=== PATIENT | female | born 1930 | race African-American/Black ===

== ENCOUNTER 2016-10-25 21:20 | Emergency (ER) | payer OTHER ==
[~2016-10-25] VITALS: Ht 160 cm; Wt 38.6 kg
--- NOTE | ~2016-10-25 | EKG ---
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 : 1930 Requested By: Bryant Kay Order Number: [id number] MD: Ignacio Jay Measurements Intervals [place] Rate: 82 P: 6 MD: 160 QRS: -48 QRSD: 91 T: 8 QT: 421 QTc: 492 Interpretive Statements Sinus rhythm Probable left atrial enlargement Left anterior fascicular block Abnormal R-wave progression, early transition Left ventricular hypertrophy Nonspecific T wave abnormality Borderline prolonged QT interval Compared to ECG 11/23/2015 01:13:38 [address] changes in the ST-T wave segments Electronically Signed On 10-26-2016 7:37:16 CDT by Ignacio Jya [email or web address] <ELECTRONICALLY SIGNED> By: Ignacio Jay MD, [facility] 10/26/16 0737 2148 2148 Ignacio Jay MD, [facility] /EPI
[~2016-10-25 21:20] MED LIST: ACETAMINOPHEN325 M1 PO; ALBUTEROL2.5 MG/0.5 INH; ALPRAZOLAM 0.0.25 M1 PO; AMBIEN 5 MG TABL5 MG PO; AMLODIPINE BESY10 MG PO; AMLODIPINE BESYL5 MG PO; ASPIRIN EC81 M1 PO; ASPIRIN325 PO; ATIVAN0.5 MG PO; BISACODYL SUPP10 MG RECTAL; CALCIUM ACETAT667 MG PO; CARVEDILOL12.5 MG PO; CATAPRES-TTS 20.2 MG TD; CATAPRES0.2 MG PO; CIPROFLOXACIN500 M3 PO; CLONIDINE HCL0.2 M2 PO; CLONIDINE HCL0.3 M2 PO; CLONIDINE PO; CLONIDINE-TTS0.3 MG TRANSDERM; COLACE100 MG PO; COMBIVENT; COMBIVENT INH; COREG PO; COUMADIN 2 MG TA2 M1; CYCLOBENZAPRINE10 MG PO; CYCLOBENZAPRINE30 MG PO; DIOVAN320 MG PO; DIPHENHIST25 M2 PO; ENOXAPARIN 30 MG SUBQ; ENOXAPARIN30 MG/0.1 SQ; ENOXAPARIN30 MG/0.1 SUBQ; ENOXAPARIN30 MG/0.3 SQ; FAMOTIDINE20 MG PO; FLUZONE 2045 MCG/010; GABAPENTIN100 MG PO; GLYCOLAX POWDER17 G1 PO; HYDRALAZINE 2525 MG PO; HYDRALAZINE 5050 MG PO; HYDROCODON-ACE1 EAC7 PO; HYDROCODON-ACE1 EACH PO; IMDUR 60 MG TAB60 M1 PO; LIDOCAINE/PRILOCAINE TOP; LISINOPRIL 20 MG PO; LISINOPRIL40 MG PO; MIRALAX17 GM PO; NEPHROCAPS SOFT1 CAP PO; NORCO 5-325 TA1 EACH PO; NOVOLOG100 UNIT/1 SUBQ; ONDANSETRON HCL4 M2 PO; PAIN & FEVER325 MG PO; PAROXETINE HCL10 MG PO; PAXIL10 MG PO; PERCOCET 5-3251 EACH PO; PHOSLO; PHOSLO667 MG PO; PNEUMOVAX25 MCG/0.5; PRILOSEC 20 MG20 MG PO; REGLAN 5 MG TAB5 M1 PO; REMERON15 MG PO; REMERON30 MG PO; RENAL CAPS SOFTG1 MG PO; RENAL SOFTGEL1 MG PO; RENVELA800 MG PO; ROBITUSSIN; SENNA PO; SENOKOT-S1 TA1 PO; SIMVASTATIN1 GM PO; SODIUM BICARBO650 M3; SODIUM BICARBO650 M3 PO; SORBITOL SOLUT500 ML PO; TRAMADOL 50 MG50 MG PO; ULTRAM 50MG TAB50 MG PO; ZESTRIL10 MG PO; ZESTRIL20 MG PO; ZOCOR 10 MG TAB10 MG PO; ZOFRAN; ZOFRAN4 MG PO; [UNRECOGNIZED DRUG - OTHER]; [UNRECOGNIZED DRUG - OTHER] INH
[2016-10-25] MEDS ORDERED: SIMVASTATIN10 MG PO (21:41)
[2016-10-25] MEDS ORDERED: CATAPRES0.2 MG PO (21:41)
[2016-10-25] MEDS ORDERED: SENSIPAR60 MG PO (21:41)
[2016-10-25] MEDS ORDERED: LISINOPRIL20 MG PO (21:41)
[2016-10-25 22:07] LABS: HEMOGLOBIN 12.7 gm/dL (12.0-15.0); MANUAL DIFF YES; MCH 27.5 pg (26.0-34.0); MCHC 32.5 g/dL (28.0-37.0); MCV 84.7 fL (80.0-100.0); PLATELET COUNT 176 thou/uL (150-400); RBC 4.61 mil/uL (4.20-5.00); RDW 18.3 % (10.5-14.5); WBC 6.5 thou/uL (4.0-11.0)
[2016-10-25 22:23] LABS: APTT 45.7 Seconds (24.5-32.8); CALCIUM 8.8 mg/dL (8.5-10.1); CREATININE 6.6 mg/dL (0.6-1.3); INR 3.3; POTASSIUM 4.1 mmol/L (3.5-5.1); PROTIME 34.1 Seconds (9.3-11.4)
[2016-10-25 22:27] LABS: ABSOLUTE NEUTROPHILS 4.9 thou/uL (1.4-8.2); TOTAL BILIRUBIN 0.6 mg/dL (<0.1-1.0); TOTAL CELL COUNT 100; TOTAL PROTEIN 7.5 g/dL (6.4-8.2)
[2016-10-25 22:28] LABS: ANISOCYTOSIS 2+; POLYCHROMASIA OCCASIONAL
[2016-10-25] MEDS ORDERED: ZOFRAN ODT4 MG PO (23:28)
[2016-10-25] MEDS ORDERED: LOPERAMIDE 2 MG2 M1 PO (23:28)
== END 2016-10-25 23:48 | disposition home or self-care (01) ==
LOC: ER 21:20
PROVIDERS: Emergency Medicine
DX: K52.9 Noninfective gastroenteritis and colitis, unspecified (principal); E11.22 Type 2 diabetes mellitus with diabetic chronic kidney disease; I13.2 Hypertensive heart and chronic kidney disease with heart failure and with stage 5 chronic kidney disease, or end stage renal disease; I50.32 Chronic diastolic (congestive) heart failure; N18.6 End stage renal disease; A52.17 General paresis; H35.30 Unspecified macular degeneration; K21.9 Gastro-esophageal reflux disease without esophagitis; F41.9 Anxiety disorder, unspecified; Z88.6 Allergy status to analgesic agent; Z88.7 Allergy status to serum and vaccine; Z88.5 Allergy status to narcotic agent; Z88.8 Allergy status to other drugs, medicaments and biological substances

== ENCOUNTER 2016-10-26 22:32 | Emergency (ER) | payer OTHER ==
[~2016-10-26] VITALS: Ht 152.4 cm; Wt 44.0 kg
[~2016-10-26 22:32] MED LIST changes: +LISINOPRIL20 MG PO; +LOPERAMIDE 2 MG2 M1 PO; +SENSIPAR60 MG PO; +SIMVASTATIN10 MG PO; +ZOFRAN ODT4 MG PO
[2016-10-26 23:20] LABS: ABSOLUTE NEUTROPHILS 7.6 thou/uL (1.4-8.2); BASOPHILS 0.5 % (0.0-2.0); EOSINOPHILS 0.2 % (0.0-3.0); HEMATOCRIT 40.5 % (37.0-47.0); HEMOGLOBIN 13.2 gm/dL (12.0-15.0); LYMPHOCYTES 3.7 % (24.0-44.0); MCH 27.8 pg (26.0-34.0); MCHC 32.5 g/dL (28.0-37.0); MCV 85.6 fL (80.0-100.0); MONOCYTES 8.8 % (1.0-8.0); PLATELET COUNT 181 thou/uL (150-400); POLYS 86.8 % (36.0-66.0); RBC 4.74 mil/uL (4.20-5.00); RDW 18.8 % (10.5-14.5); WBC 8.8 thou/uL (4.0-11.0)
[2016-10-26 23:23] LABS: MANUAL DIFF NO
[2016-10-27 01:01] LABS: URINE BILIRUBIN NEGATIVE (Negative); URINE BLOOD 2+ (Negative); URINE COLOR YELLOW; URINE GLUCOSE-RANDOM* TRACE (Negative); URINE KETONES NEGATIVE (Negative); URINE LEUKOCYTES-REFLEX TRACE (Negative); URINE PROTEIN (DIPSTICK) 2+ (Negative); URINE SPECIFIC GRAVITY 1.015 (1.003-1.035); URINE UROBILINOGEN 0.2 E.U./dl (0.2-1.0)
[2016-10-27 01:10] LABS: CASTS None Seen /LPF (None Seen); CRYSTALS None Seen /LPF (None Seen); SQUAMOUS 4-10 Moderate /LPF (0-3)
[2016-10-27 01:11] LABS: URINE RBC 3-10 Few /HPF (0-2); URINE WBC-REFLEX 0-5 Rare /HPF (0-5)
[2016-10-27 01:36] LABS: ALBUMIN 3.6 g/dL (3.4-5.0); CALCIUM 9.6 mg/dL (8.5-10.1); POTASSIUM 4.2 mmol/L (3.5-5.1); TOTAL BILIRUBIN 0.6 mg/dL (<0.1-1.0); TOTAL PROTEIN 8.3 g/dL (6.4-8.2)
[2016-10-27 01:39] LABS: CREATININE 4.4 mg/dL (0.6-1.3)
[2016-10-27] MEDS ORDERED: CEFDINIR300 MG PO (02:31)
== END 2016-10-27 04:10 | disposition home or self-care (01) ==
LOC: ER 22:32
PROVIDERS: Emergency Medicine
DX: R11.2 Nausea with vomiting, unspecified (principal); N39.0 Urinary tract infection, site not specified; E11.22 Type 2 diabetes mellitus with diabetic chronic kidney disease; I13.2 Hypertensive heart and chronic kidney disease with heart failure and with stage 5 chronic kidney disease, or end stage renal disease; N18.6 End stage renal disease; I50.9 Heart failure, unspecified; Z99.2 Dependence on renal dialysis; K21.9 Gastro-esophageal reflux disease without esophagitis; F41.9 Anxiety disorder, unspecified; Z88.6 Allergy status to analgesic agent; Z88.5 Allergy status to narcotic agent; Z88.7 Allergy status to serum and vaccine; Z88.8 Allergy status to other drugs, medicaments and biological substances

== ENCOUNTER 2016-10-28 09:01 | Inpatient (IN) | payer OTHER ==
[~2016-10-28] VITALS: Ht 165.1 cm; Wt 39.7 kg
--- NOTE | ~2016-10-28 | HC ---
[facility] [place] [address] CONSULTATION Name: ZARIA MAC Room #: 246-P [facility] IN M.R.#: [id number] Admission: 10/28/16 Attend Phys: Latricia Davis Discharge: Date of : 32 Report #: [id number] THIS REPORT FOR: //name// CC: Jennifer Davis PRIMARY CARE PHYSICIAN: Unknown. REFERRAL PHYSICIAN: Latricia Davis MD. REASON FOR REFERRAL: Ventilator management. HISTORY OF PRESENT ILLNESS: The patient is an 86-year-old female who was initially admitted on 10/28/2016 for her abdominal pain, nausea, vomiting, diarrhea. She was subsequently found to have bowel perforation. She underwent surgery yesterday afternoon. She was found to have perforated jejunum. She then underwent exploratory laparotomy, lysis of adhesion, segmental small bowel resection x 2, repair of incarcerated ventral hernia. Estimated blood loss was approximately 50 mL. The patient was left on a ventilator postoperatively. Early this morning, the patient underwent CPAP trial. Weaning parameters looked adequate, though mentally, the patient still remained somnolent, but arousable, but easily falls back to sleep. Hemodynamically had been stable overnight. PAST MEDICAL HISTORY: Notable for end-stage renal disease, undergoing hemodialysis, history of heart failure, hypertension, diabetes mellitus type 2, progressive dementia, macular degeneration with near blindness, malnutrition, weight loss wasting syndrome, gastroesophageal reflux disease, anxiety disorder. She has anemia of chronic disease, past history of TIA, cardiomyopathy with marked diastolic dysfunction, history of bowel obstruction and chronic debility. On chronic anticoagulation, reasons unknown. PAST SURGICAL HISTORY: As mentioned above including an AV fistula in the left upper forearm for her dialysis, left knee replacement. ALLERGIES: To CODEINE, TETANUS, DARVOCET, INDAPAMIDE, ZEMPLAR, reactions unspecified. MEDICATIONS: Reviewed. HOME MEDICATIONS: Include Zestril, simvastatin, Sensipar, Catapres, amlodipine, sodium bicarbonate, calcium supplements, Paxil, Zocor, NovoLog, Ultram, folic acid, Renvela, Dulcolax, MiraLax, Senokot, on Coumadin 6 mg daily, Lovenox mg subQ at bedtime. [address] [address] CONSULTATION Name: ZARIA MAC Room #: 246-P [facility] IN M.R.#: [id number] Admission: 10/28/16 Attend Phys: Latricia Davis Discharge: Date of : 32 Report #: [id number] FAMILY HISTORY: Notable for diabetes and hypertension. SOCIAL HISTORY: The patient lives with the family. No history of tobacco or alcohol use. REVIEW OF SYSTEMS: Deferred as the patient is intubated. PHYSICAL EXAMINATION: VITAL SIGNS: Temperature is 98 degrees Fahrenheit, pulse is 118, respiratory rate is 20, blood pressure is 130/80 mmHg, saturation 100%. HEENT: Normocephalic, atraumatic. NECK: Supple, without any lymphadenopathy or thyromegaly. CHEST: Breath sounds are clear without any rales or wheezes. CARDIOVASCULAR: Normal S1, S2. No murmurs or gallop. There is no JVD. There is no carotid bruit. Pulses are 2+/4+ bilaterally. ABDOMEN: Mildly distended and surgical dressings are present. GENITOURINARY AND RECTAL: Deferred. EXTREMITIES: There is no edema, cyanosis or clubbing. NEUROLOGIC: The patient appears somnolent, but arousable, but falls to sleep quite easily. The patient has been off the vent for about 2 hours. LABORATORY DATA: CT abdomen and pelvis revealed persistent dilated loops of small bowel consistent with chronic ileus versus partial obstruction. Echocardiogram from 2015 showed normal EF of 55-60%. Right ventricle was normal. Right atrium was mildly dilated. Left atrium was severely dilated. Aortic valve is mildly calcified. Mitral valve is mildly calcified. EKG showed no acute ischemic changes. IMPRESSION: 1. Perforated jejunum, peritonitis status post surgery as mentioned above. 2. End-stage renal disease, on hemodialysis. 3. Diabetes mellitus type 2. 4. Diastolic dysfunction, severe. 5. Chronic anticoagulation, ?indication. 6. Progressive dementia. 7. Progressive malnutrition and weight loss. 8. Expected postoperative respiratory failure. RECOMMENDATIONS AND DISCUSSION: The patient did fairly well on CPAP trial; however, the patient remains somnolent, easily falling asleep off sedation. Once the patient is able to maintain wakefulness, follow commands, I believe it is safe to proceed with extubation. We will continue to follow. DVT and GI prophylaxis will be addressed. Continue current care including broad spectrum antibiotics in light of bowel perforation and peritonitis. The patient will need aggressive nutritional intervention given her malnutrition with a [facility] [place] [address] [place] [address] CONSULTATION Name: ESTEFANIAZARIA Room #: [address] [place] [address] IN M.R.#: [id number] Admission: 10/28/16 Attend Phys: Latricia Chowdhury Sveta Discharge: Date of : 32 Report #: [id number] recent progressive weight loss. Discussed the findings with the patient's family along with nursing. Thank you for this consultation. <ELECTRONICALLY SIGNED> By: Shabbir Newell MD 11/03/16 1525 1128 1409 Shabbir Newell MD /nt
--- NOTE | ~2016-10-28 | O ---
[facility] [place] [address] OPERATIVE REPORT Name: ZARIA MAC Room #: 246-P ADM IN M.R.#: [id number] Admission: 10/28/16 Attend Phys: Latricia Davis Discharge: Date of : 32 Report #: [id number] THIS REPORT FOR: //name// CC: Jennifer Davis DATE OF SERVICE: 11/02/2016 ADMISSION DATE: 10/28/2016 DATE OF OPERATION: 11/02/2016 DATE OF DICTATION: 11/07/2016 PREOPERATIVE DIAGNOSES: Perforated viscus, acute abdomen. POSTOPERATIVE DIAGNOSIS: Perforated small bowel (jejunum). PROCEDURE: Exploratory laparotomy with jejunal resection, lysis of adhesions for 30 minutes. SURGEON: Reji Weber M.D. MOTOR WINDER: Jerry Rodriguez M.D. INDICATIONS: An 86-year-old lady with 15 years of hemodialysis has presented with some obstipation as well as loose stools and was found by x-ray today to have massive amount of free air consistent with perforated viscus. The patient requires operation. The patient and family are in agreement to proceed. OPERATIVE PROCEDURE: The patient was given preoperative IV antibiotics. She had hemodialysis the morning of surgery. She was brought to the operating room suite and had satisfactory induction of general endotracheal anesthesia. The patient's entire abdomen was prepped and draped in usual sterile procedure with DuraPrep solution. An art line had been established in the right radial artery by anesthesia. After draping was completed, an appropriate timeout was then performed. A midline incision was performed. The small bowel was tightly adherent to the anterior abdominal wall from previous surgery. The adhesions were taken down with sharp and tedious dissection utilizing scissors as well as electrocautery 30 minutes of tedious dissection was utilized to free up the small bowel. Upon entering the peritoneal cavity, there was a mid jejunal perforation with green succuss entericus fluid emanating. Cultures were obtained of the peritoneal fluid for aerobes and anaerobes. After tedious dissection the bowel proximal 5 cm from the perforation was transected with the JO ANN stapling device. The mesentery was taken down with the LigaSure device. [facility] [address] [place] [address] OPERATIVE REPORT Name: ZARIA MAC Room #: 246-P [facility] IN M.R.#: [id number] Admission: 10/28/16 Attend Phys: Latricia Davis Discharge: Date of : 32 Report #: [id number] Any bleeding points were controlled with stick ties of 3-0 Vicryl. The dissection was carried down over the pelvic brim. There were dense adhesions and the bowel was freed up with some serosal type injury to the surface of the bowel where it was densely adherent into the pelvis. The distal segment distal to the somewhat ischemic roughened serosal surface of the bowel was picked, the bowel was transected with JO ANN stapling device. The mesentery was transected with the LigaSure. The bowel was marked at the proximal resection margin and the bowel was also marked at the distal resection margin. The perforation was also marked for pathological evaluation. After this was completed, the bowel was then reanastomosed utilizing the JO ANN stapling devices with a 3-0 PDS suture. The entero-enteral anastomosis was performed. The enterotomy end was ligated with the TA 60 stapling device. The enterotomy closure end was then oversewn with a running seromuscular Lembert type sutures. The mesenteric rent was also approximated with running 3-0 PDS sutures. A 3-0 PDS suture was placed in the crotch of the anastomosis. After this was completed, there was a 2 finger opening for the anastomosis. The bowel was run from the ligament of Treitz to the terminal ileum without finding any other serosal injuries. No other abnormalities were encountered. The peritoneal cavity was irrigated with 5 liters of warm saline. After this was completed, a 19-Mozambican NOE drain was brought out on the lateral abdominal wall and placed into the pelvis. This was sutured in place with a 2-0 nylon. The fascia was then approximated with a running #1 looped PDS from the inferior aspect of the midline incision. Another second #1 looped PDS was run from the superior aspect. These were tied individually in the mid portion of the wound. The tails were then tied together. The knot was buried in a subcuticular fashion with 3-0 Vicryl. Skin margins were stapled. The estimated blood loss for the entire procedure was less than 200 mL. The patient tolerated the procedure well. She remained intubated and was returned directly to the Intensive Care Unit in stable, but critical condition. <ELECTRONICALLY SIGNED> By: Reji Weber MD, FACS 11/08/16 1018 1752 1849 Reji Weber MD, FACS /nt
--- NOTE | ~2016-10-28 | HC ---
[facility] [place] [address] CONSULTATION Name: ZARIA MAC Room #: 246-P ADM IN M.R.#: [id number] Admission: 10/28/16 Attend Phys: Latricia Davis Discharge: Date of : 32 Report #: [id number] THIS REPORT FOR: //name// CC: Jennifer Davis DATE OF SERVICE: 11/03/2016 ATTENDING PHYSICIAN: Dr. Brown. CONSULTATION REQUESTED BY: Dr. Weber. REASON FOR CONSULTATION: Antibiotic management. HISTORY OF PRESENT ILLNESS: The patient is an 86-year-old -[place] woman initially hospitalized on October 28 with some nausea and abdominal pain, possible colitis is entertained. Subsequently, she is diagnosed to have free air in the abdomen. She undergoes exploratory laparotomy, lysis of adhesions, segmental small bowel resection and repair of incarcerated abdominal hernia. Peritoneal fluid Gram stain revealed yeast, ID opinion is requested. At present, the patient in the ICU, ventilator dependent. All information gathered from the review of records. 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 DRUG ALLERGIES: CODEINE, PROPOXYPHENE, ACETAMINOPHEN, INDAPAMIDE, PARICALCITOL, . MEDICATIONS: She is on Cipro 400 mg IV daily, metronidazole 500 mg IV 2 times daily, sodium bicarbonate 650 mg p.o. daily, paroxetine 10 mg p.o. daily, lisinopril 20 mg p.o. daily, amlodipine 10 mg p.o. daily, sevelamer 800 mg with meals, pantoprazole 40 mg p.o. daily, insulin lispro per sliding scale, p.r.n. glucose glucagon, p.r.n. ondansetron, tramadol p.o. and morphine sulfate intravenously. Currently, the patient is obviously n.p.o. and not receiving any of her oral medications. SOCIAL HISTORY: Unable to obtain. FAMILY HISTORY: Unable to obtain. REVIEW OF SYSTEMS: Unable to obtain. PHYSICAL EXAMINATION: [facility] [address] [place] [address] CONSULTATION Name: ZARIA MAC Room #: 246-P [facility] IN M.R.#: [id number] Admission: 10/28/16 Attend Phys: Latricia Davis Discharge: Date of : 32 Report #: [id number] GENERAL: Elderly frail-looking woman. VITAL SIGNS: Temperature 100.1 on October 31, afebrile thereafter; pulse 118, respirations 17, blood pressure 106/61, has a right radial artery catheter. HEENMT: Pupils reactive. Mouth, missing teeth. NECK: Supple. LUNGS: Few basilar crackles. HEART: S1, S2. No gallop. ABDOMEN: There is a NOE draining serous type fluid. There is abdominal wound. EXTREMITIES: No clubbing, cyanosis. NEUROLOGIC: Unable to evaluate. LABORATORY DATA: Sodium 140, potassium 4.5, CO2 25, BUN 22, creatinine 2.9, albumin 2.6 g/dL on November 01, protime 13.6 on November 01. WBC 13.9, hemoglobin 11.5, platelets 157,000 today. ABGs revealed pH 7.37, pCO2 30, pO2 188, bicarbonate 17.3, lactate 1. These set of gases on FiO2 50%. MICROBIOLOGY DATA: Urine culture on October 27 revealed greater than 100,000 colonies of gram-negative rods, sensitive to ceftriaxone. The abdominal fluid Gram stain revealed few wbc's, rare yeasts. RADIOLOGY EVALUATION: An x-ray of the abdomen on November 02 revealed development of free intraperitoneal air consistent with bowel perforation which is thought to be significantly increased compared to recent CT scan of abdomen and pelvis on November 01. On November 01, a CT scan of abdomen and pelvis revealed dilated loops of small bowel with air-contrast levels and some contrast-filled small bowel loops suggesting chronic ileus or partial obstruction. ASSESSMENT: 1. Status post exploratory laparotomy, segmental small bowel resection, repair of abdominal wall hernia. 2. Chronic renal failure, on hemodialysis. 3. Malnutrition 4. Dementia. SUGGESTIONS: Recommend treatment with Rocephin 1 g IV daily, continue Flagyl 500 mg IV 2 times daily and give micafungin 100 mg daily for yeast isolated in the peritoneal cavity. Dr. Brown and Dr. Weber, thank you for requesting my suggestion. <ELECTRONICALLY SIGNED> By: Topher Barker MD 11/05/16 1121 0711 0940 Topher Barker MD /nt
--- NOTE | ~2016-10-28 | H ---
[facility] [place] [address] HISTORY AND PHYSICAL Name: ZARIA MAC Room #: 246-P ADM IN M.R.#: [id number] Admission: 10/28/16 Attend Phys: Latricia Davis Discharge: Date of : 32 Report #: [id number] THIS REPORT FOR: //name// CC: Jennifer Brown DATE OF SERVICE: 10/28/2016 CHIEF COMPLAINT: Nausea. HISTORY OF PRESENT ILLNESS: The patient is not really able to give me much history. Apparently the history was given by the family that was in the ER and they are no longer present. history is coming off of the ER notes and what the ER doctor told me. The patient apparently had been having nausea off and on for 2 days and having some diarrhea as well. She had been given antibiotic cefdinir yesterday in the ER for UTI. She has been in the ER 3 days in row for this nausea. She is an end-stage renal dialysis patient and gets her dialysis Saturday, Saturday, Saturday. She apparently had some dark colored emesis yesterday. She denied any more chest pains or shortness of breath. PAST MEDICAL HISTORY: Significant for: 1. End-stage renal disease. 2. Congestive heart failure. 3. Hypertension. 4. Diabetes mellitus type 2. 5. Progressive dementia. 6. Blindness due to macular degeneration. 7. Wasting syndrome. 8. Reflux. 9. Anxiety. MEDICATIONS: Include lisinopril 20 mg a day, simvastatin 10 mg a day, Sensipar 60 mg a day, clonidine 0.2 mg b.i.d., amlodipine 10 mg a day, sodium bicarbonate daily, calcium acetate t.i.d., Paxil 10 mg a day, simvastatin 10 mg a day, insulin sliding scale, tramadol 50 mg q. 6 p.r.n., B vitamins daily, Renvela 800 mg t.i.d., Dulcolax daily, MiraLax daily, Coumadin 6 mg a day, Lovenox 30 at bedtime. ALLERGIES: TYLENOL, CODEINE, INDAPAMIDE, ZEMPLAR, DARVOCET. SOCIAL HISTORY: She is nonsmoker, nondrinker, no recreational drugs. REVIEW OF SYSTEMS: CONSTITUTIONAL: She denied fevers and chills. HEENT: No headaches or visual changes. [address] [address] HISTORY AND PHYSICAL Name: ZARIA MAC Room #: 246-P [facility] IN M.R.#: [id number] Admission: 10/28/16 Attend Phys: Latricia Davis Discharge: Date of : 32 Report #: [id number] CHEST: No chest pains or shortness of breath. GASTROINTESTINAL: Per above, the nausea, vomiting, diarrhea and constipation. GENITOURINARY: No burning or frequency UTI. EXTREMITIES: No new wounds or rashes. No new joint pains or swelling. PHYSICAL EXAMINATION: VITAL SIGNS: In the ER, blood pressure 181/88, pulse is 96, respiratory rate is 18. She is afebrile. She was on 2 liters of nasal cannula. Her weight is 88 pounds. GENERAL: She is a very frail, cachectic looking woman who is confused in no acute distress. HEENT: Her mucous membranes are dry. NECK: Supple without adenopathy, thyromegaly or bruits. CHEST: Clear to auscultation bilaterally. CARDIOVASCULAR: Regular rhythm without murmur. ABDOMEN: Soft, nontender. Bowel sounds are active. EXTREMITIES: Thin, no edema. Pulses are intact. SKIN: No new rashes or wounds. NEUROLOGIC: No new numbness or weakness. She is not oriented to person, place or time. LABORATORY DATA: Sodium 135, potassium 4.5, chloride 95, bicarbonate 21, BUN 85, creatinine 7.1, glucose 81. Lactic acid 1. Calcium 8.2, total bilirubin 0.5. AST 24, ALT 16, alkaline phosphatase 260, albumin 3.3, lipase 278. WBC 12.4, hemoglobin 12.5, hematocrit 38.9, platelet count 184, 76 segs, 10 bands, [address] scan of the abdomen shows no acute evidence of any abnormalities or masses that was given without IV contrast. There is some slight diffuse colonic edema, possible early colitis. ASSESSMENT: 1. Abdominal pain with nausea, possible early colitis on limited CT study. 2. Urinary tract infection. Started on Rocephin. 3. End-stage renal disease. We will get dialysis. 4. We will go ahead and start her on IV antibiotics for colitis in light of the persistence. We will add metronidazole to Rocephin. Keep the Rocephin instead of Cipro in light of her renal disease. If she does not improve soon, we ask GI to see her. 5. For her diabetes mellitus, sliding scale insulin plus her basal insulin. 6. For her dementia, continue home meds. 7. Hyperlipidemia, continue simvastatin. <ELECTRONICALLY SIGNED> By: John Brown MD 11/11/16 0844 1330 2027 John Brown MD /nt
--- NOTE | ~2016-10-28 | EKG ---
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
--- NOTE | ~2016-10-28 | S ---
[facility] [place] [place] [address] SURGICAL PATH RPT PROCEDURE Name: ZARIA PAYTON Room #: 246-P ADM IN M.R.#: [id number] Admission: 10/28/16 Date of : 34 Discharge: Report #: [id number] Path Case #: [id number] PATHOLOGY REPORT COLLECTION DATE: 11/02/2016 RECEIVED DATE: 11/05/2016 SUBMITTING PHYS: Dr. Reji Weber OTHER PHYS: Dr. Latricia Brown SPECIMEN(S) RECEIVED: A.Proximal jejunum B.Segment of jejunum C.Distal segment of jejunum * * * * * * * * * * * * FINAL DIAGNOSIS: A. Small bowel, proximal jejunum, resection: - Moderate acute serositis along with congested vessels identified on the surface, history of hernia. - Mucosa at margins viable and without dysplasia. B. Small intestine, segment of jejunum, resection: - Transmural acute inflammation along with marked serositis as well as area of perforation identified. - Margins of resection showing viable mucosa without any dysplasia. - Acute serositis identified along the serosal surface at proximal and distal margins. C. Small intestine, distal segment of jejunum, resection: - Moderate acute serositis along with congested vessels identified on the surface, history of hernia. - Mucosa at margins viable and without dysplasia. (IUV:demarcus; d/t: 11/06/2016) PATHOLOGIST: Kayleigh Garcia M.D. REPORT ELECTRONICALLY SIGNED BY: Kayleigh Garcia M.D. DATE/TIME: 11/06/2016 14:45 * * * * * * * * * * * * GROSS PATHOLOGY: A. The specimen is received in formalin labeled "Zaria Payton, proximal jejunum". Received is an unoriented segment of small bowel measuring 1.7 cm in length by 3.8 cm in diameter. Both margins are stapled closed. Opening the specimen reveals light watts mucosa with [facility] [address] [place] [address] SURGICAL PATH RPT PROCEDURE Name: ZARIA PAYTON Room #: [facility]- ADM IN M.R.#: [id number] Admission: 10/28/16 Date of : 32 Discharge: Report #: [id number] Path Case #: [id number] normal architectural folds. No distinct nodules or lesions are noted grossly. The specimen is submitted representatively as follows: A1-A2 margin and opposite margin A3 patient relations representative cross sections of specimen. B. The specimen is received in formalin labeled "Zaria Payton, segment of jejunum, suture reid proximal". Received is an oriented segment of small bowel measuring 29.6 cm in length by up to 3.5 cm in diameter. Both margins are stapled closed, however, there is a suture placed at one margin designating this as the proximal aspect of the specimen. The serosal surface is pink-morales to morales-watts appearance. 4.3 cm proximal to the distal margin, the serosal surface is morales-brown to slightly ulcerated in appearance. 0.7 cm proximal to the distal margin, there is a suture within the bowel wall indicating a possible perforation. The surrounding serosal surface is inked black. The specimen is opened along the antimesenteric line to reveal light watts mucosa with normal architectural folds. No distinct nodules or lesions are noted grossly. The attached mesenteric fat measures up to 3.0 cm in thickness. Sectioning through the attached mesenteric fat reveals no readily identifiable lymph nodes. The specimen is submitted representatively as follows B1 proximal margin B2 distal margin B3 patient relations representative sections through slightly ulcerated-appearing serosal surface near distal margin B4 patient relations representative section through possible perforation B5 uninvolved mucosa. C. The specimen is received in formalin labeled "Zaria Payton, distal segment of jejunum". Received is an unoriented segment of small bowel measuring 18.8 cm in length and ranging in diameter from 1.8 to 3.3 cm. Both margins are stapled closed, however, there is a suture present at one margin designating this as the proximal aspect. The serosal surface is pink-morales in appearance with a moderate amount of overlying adhesions near the proximal margin. The attached mesenteric fat measures up to 3.1 cm in thickness. The specimen is opened along the antimesenteric line to reveal light watts mucosa with normal architectural folds. No distinct nodules or lesions are noted grossly. Sectioning through the attached mesenteric fat reveals no readily identifiable lymph nodes. The specimen is submitted representatively as follows: C1 proximal margin C2 distal margin C3 patient relations representative cross-sections of mucosa. (CAA; 11/05/2016) CLINICAL HISTORY: Ventral hernia [facility] [address] [place] [address] SURGICAL PATH RPT PROCEDURE Name: ZARIA PAYTON Room #: 246-P ADM IN M.R.#: [id number] Admission: 10/28/16 Date of : 34 Discharge: Report #: [id number] Path Case #: [id number] INITIAL CPT CODE(S): A; 89647 B; 44196 C; 59624 Professional services performed by [facility] at [place] [address], [place] [address] Technical services performed by [facility] at [address] [place] [address], [facility] [address] [address]. [facility] [address] [place] [address] PHONE: [phone] DIRECTOR: Vernon Zamora M.D. * * * END OF REPORT * * *
--- NOTE | ~2016-10-28 | EKG ---
[address] [address] ELECTROCARDIOGRAM REPORT Name: ZARIA MAC Room #: 246-P ADM IN M.R.#: [id number] Admission: 10/28/16 Attend Phys: Latricia Davis Discharge: Date of : 32 Report #: [id number] THIS REPORT FOR: //name// [facility] Test Date: 2016-11-02 Test Time: 17:13:46 Pat Name: ZARIA MAC Department: Room: 246 Gender: F Public Address Announcer: Amanda CROCKER : 1930 Requested By: Suellen Davila Order Number: [id number] MD: Kush Barker Measurements Intervals [place] Rate: 152 P: -1 HI: 126 QRS: -45 QRSD: 72 T: 74 QT: 327 QTc: 520 Interpretive Statements sinus tachycardia Left ventricular hypertrophy Baseline wander in lead(s) V2 Compared to ECG 10/25/2016 21:48:09 Sinus rhythm no longer present T-wave abnormality no longer present Electronically Signed On 11-03-2016 15:28:49 CDT by Kush Barker [email or web address] <ELECTRONICALLY SIGNED> By: Kush Barker MD 11/03/16 1528 [id number] Kush Barker MD /EPI
--- NOTE | ~2016-10-28 | HC ---
[facility] [place] [address] CONSULTATION Name: ZARIA MAC Room #: 428-P ADM IN M.R.#: [id number] Admission: 10/28/16 Attend Phys: Latricia Davis Discharge: Date of : 32 Report #: [id number] THIS REPORT FOR: //name// CC: Jennifer Davis DATE OF ADMISSION: 10/28/2016 DATE OF CONSULTATION: 10/29/2016 REASON FOR CONSULTATION: End-stage renal disease. HISTORY OF PRESENT ILLNESS: This 86-year-old female has end-stage renal disease secondary to diabetes mellitus and hypertension. She is maintained on dialysis 3 times weekly at [facility]. She has been to the Emergency Room three times within the last week with complaints of nausea and abdominal discomfort. She is admitted at this time for further evaluation and treatment. She denies any evidence of GI blood loss. Her intake has been very poor. She has undergone progressive loss of weight with a current weight of 77 pounds. She denies shortness of breath, productive cough or edema. PAST MEDICAL HISTORY: Remarkable for longstanding diabetes mellitus and hypertension. She has had progressive dementia. She has a history of congestive heart failure and hypertension. 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 MEDICATIONS: On admission include lisinopril 20 mg daily, simvastatin 10 mg daily, Sensipar 60 mg daily, clonidine 0.2 mg b.i.d., amlodipine 10 mg daily, sodium bicarbonate, calcium acetate, Paxil 10 mg daily, simvastatin 10 mg daily, sliding scale NovoLog insulin, tramadol 50 mg q. 6 hours p.r.n., Nephrocaps daily, Renvela 800 mg a.c., Dulcolax, MiraLax, Lovenox. ALLERGIES: Reported to TYLENOL, CODEINE, INDAPAMIDE, ZEMPLAR, and DARVOCET. PERSONAL AND SOCIAL HISTORY: The patient does not smoke, use alcohol or have any history of substance abuse. REVIEW OF SYSTEMS: Remarkable as described in the history of present illness. She denies fevers, chills, sweats or other constitutional complaints. She has had no edema. She denies productive cough, hemoptysis, chest pain or palpitations. PHYSICAL EXAMINATION: GENERAL: Reveals a wasted elderly female in no acute distress. She is presently undergoing dialysis. [address] [address] CONSULTATION Name: ZARIA MAC Room #: 428-P [facility] IN .R.#: [id number] Admission: 10/28/16 Attend Phys: Latricia Davis Discharge: Date of : 32 Report #: [id number] VITAL SIGNS: Blood pressure 150/80, temperature 98, pulse 86, respirations 22. SKIN: Warm and dry. There is no clubbing, cyanosis, edema or adenopathy. Turgor is diminished. Membranes are dry. There is no JVD present. HEENT: The head is normocephalic and atraumatic. The sclerae are white and conjunctivae are not injected. The pharynx is benign. NECK: Supple. LUNGS: Renteria reveal scattered rhonchi without evidence of consolidation. CARDIAC: Reveals a regular rate and rhythm without rub. ABDOMEN: Soft and nontender without palpable mass or organomegaly. NEUROLOGIC: Reveals the patient to be a fair historian with a nonfocal examination. DIAGNOSTIC DATA: Available at this time include sodium 135, potassium 4.5, chloride 94, CO2 21, BUN 85, creatinine 7.1, glucose 81. White blood cell count 9800, hemoglobin 12.5, hematocrit 38.3, platelet count 172,000. ASSESSMENT: 1. Nausea and vomiting with CT scan of the abdomen revealing ascites and thickening of the colon, possibly consistent with colitis. We will obtain a C. difficile. GI has been consulted and will evaluate the patient further. 2. End-stage renal disease on maintenance hemodialysis appearing clinically dry at this time. We will decrease the UF goal to 1000 mL. 3. Hypertension. 4. Diabetes mellitus. 5. Macular degeneration with legal blindness. 6. Progressive dementia. PLAN: We will provide dialysis support and follow the patient while hospitalized. Please see orders. <ELECTRONICALLY SIGNED> By: Naga Santos MD 10/30/16 [id number] Naga Santos MD /nt
--- NOTE | ~2016-10-28 | HC ---
[facility] [place] [address] CONSULTATION Name: ZARIA MAC Room #: 246-P [facility] IN M.R.#: [id number] Admission: 10/28/16 Attend Phys: Latricia Davis Discharge: Date of : 34 Report #: [id number] THIS REPORT FOR: //name// CC: Jennifer Davis DATE OF SERVICE: 11/01/2016 HISTORY OF PRESENT ILLNESS: I have been asked to evaluate this 86-year-old lady who has presented to the hospital with nausea and diarrhea for approximately 2 days. She has been intermittently in the emergency department for her nausea and treated for urinary tract infection with antibiotics, but has finally been admitted and is found on examination by gastroenterology to have significant tenderness in the region of her mid abdomen. At the time of examination, she is able to give me some history. She is oriented, is not complaining of significant abdominal pain. 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 MEDICATIONS: Lisinopril 20 mg daily, simvastatin, Sensipar 60 mg, clonidine 0.2 mg b.i.d., amlodipine 10 mg daily, calcium acetate, Paxil 10 mg a day, insulin sliding scale, tramadol, Dulcolax, MiraLax, Coumadin 6 mg a day, Lovenox 30 mg at bedtime. SURGICAL ILLNESSES: The patient relates that she had a hysterectomy many years ago, does not note exact time frame. ALLERGIES: TYLENOL, CODEINE, INDAPAMIDE, ZEMPLAR, DARVOCET. SOCIAL HISTORY: Nonsmoker, nondrinker, no drugs. Has been living at home with family. REVIEW OF SYSTEMS: Ten point review of systems. She denies any recent change in gastrointestinal function until this hospital admission. PHYSICAL EXAMINATION: GENERAL: Reveals a patient who is alert. HEENT: Edentulous, poor dental hygiene, cachectic. LUNGS: Clear at the bases. CARDIOVASCULAR: Regular rhythm. ABDOMEN: Mild decrease in the fascia without fascial defect just at the level of the umbilicus. She has a nonreducible hernia present at this level. No guarding or rebound is present. [address] [address] CONSULTATION Name: ZARIA MAC Room #: [facility] ADM IN M.R.#: [id number] Admission: 10/28/16 Attend Phys: Latricia Davis Discharge: Date of : 34 Report #: [id number] NEUROLOGIC: She is oriented x 3 with bilateral motor symmetry. LABORATORY DATA: Demonstrates creatinine of 7, lactic acid of 1, hemoglobin of 12. Initial INR is prolonged, but decreasing due to holding of the Coumadin therapy. CT of the abdomen shows no free air. Some dilated loops of small bowel, possibly consistent with chronic adhesive disease or partial small-bowel obstruction. PLAN: I would recommend IV fluids. We will repeat the examination and follow the patient with you. She does not have an acute abdomen at this time. Thank you for allowing us to participate in her care. <ELECTRONICALLY SIGNED> By: Reji Weber MD, FACS 11/06/16 1356 1425 14 Reji Weber MD, FACS /nt
[~2016-10-28 09:01] MED LIST changes: +CEFDINIR300 MG PO
[2016-10-28 09:05] VITALS: BP 181/88
[2016-10-28 10:06] LABS: CALCIUM 8.2 mg/dL (8.5-10.1); POTASSIUM 4.5 mmol/L (3.5-5.1)
[2016-10-28 10:08] LABS: CREATININE 7.1 mg/dL (0.6-1.3)
[2016-10-28 10:09] LABS: HEMATOCRIT 38.9 % (37.0-47.0); HEMOGLOBIN 12.5 gm/dL (12.0-15.0); MCH 27.6 pg (26.0-34.0); MCHC 32.1 g/dL (28.0-37.0); MCV 85.8 fL (80.0-100.0); PLATELET COUNT 184 thou/uL (150-400); RBC 4.53 mil/uL (4.20-5.00); RDW 18.5 % (10.5-14.5); WBC 12.4 thou/uL (4.0-11.0)
[2016-10-28 10:10] LABS: MANUAL DIFF YES
[2016-10-28 10:14] LABS: ALBUMIN 3.3 g/dL (3.4-5.0); DIRECT BILIRUBIN 0.1 mg/dL (<0.1-0.3); TOTAL BILIRUBIN 0.5 mg/dL (<0.1-1.0); TOTAL PROTEIN 7.6 g/dL (6.4-8.2)
[2016-10-28 10:34] LABS: ABSOLUTE NEUTROPHILS 10.7 thou/uL (1.4-8.2); PLATELET ESTIMATE NORMAL; TOTAL CELL COUNT 100
[2016-10-28 12:33] VITALS: BP 159/74
[2016-10-28 13:04] VITALS: BP 180/80
[2016-10-28 16:08] VITALS: BP 176/74
[2016-10-28 16:50] LABS: PROTIME > 210.1 Seconds (9.3-11.4)
[2016-10-28 16:51] LABS: INR > 18.0
[2016-10-28 20:00] VITALS: BP 190/68
[2016-10-28 23:03] VITALS: BP 181/69; BP 187/61
[2016-10-29 05:30] VITALS: BP 190/97
[2016-10-29 06:44] LABS: HEMATOCRIT 38.3 % (37.0-47.0); HEMOGLOBIN 12.5 gm/dL (12.0-15.0); MCH 27.7 pg (26.0-34.0); MCHC 32.8 g/dL (28.0-37.0); MCV 84.5 fL (80.0-100.0); RBC 4.53 mil/uL (4.20-5.00); RDW 18.1 % (10.5-14.5); WBC 9.8 thou/uL (4.0-11.0)
[2016-10-29 06:57] LABS: PROTIME 56.2 Seconds (9.3-11.4)
[2016-10-29 07:10] LABS: INR 5.4
[2016-10-29 08:20] VITALS: BP 150/80
[2016-10-29 11:22] LABS: TSH 0.216 uIU/mL (0.358-3.740)
[2016-10-29 16:09] VITALS: BP 184/88
[2016-10-29 19:40] VITALS: BP 167/86
[2016-10-29 23:08] LABS: HEP B SURFACE Ab(ANTI-HBS Reactive (())
[2016-10-30 04:00] VITALS: BP 153/68
[2016-10-30 05:49] LABS: HEMATOCRIT 39.1 % (37.0-47.0); HEMOGLOBIN 12.5 gm/dL (12.0-15.0); MCH 27.5 pg (26.0-34.0); MCV 86.1 fL (80.0-100.0); RBC 4.54 mil/uL (4.20-5.00); RDW 18.2 % (10.5-14.5); WBC 5.6 thou/uL (4.0-11.0)
[2016-10-30 06:07] LABS: ALBUMIN 2.7 g/dL (3.4-5.0); CALCIUM 8.9 mg/dL (8.5-10.1); PHOSPHORUS 4.9 mg/dL (2.5-4.9); POTASSIUM 4.4 mmol/L (3.5-5.1)
[2016-10-30 06:08] LABS: CREATININE 5.1 mg/dL (0.6-1.3)
[2016-10-30 07:40] VITALS: BP 150/83
[2016-10-30 09:54] LABS: PROTIME 67.1 Seconds (9.3-11.4)
[2016-10-30 10:02] LABS: INR 6.5
[2016-10-30 11:16] VITALS: BP 147/71
[2016-10-30 14:54] VITALS: BP 136/70
[2016-10-30 21:00] VITALS: BP 169/90
[2016-10-31 07:45] VITALS: BP 161/83
[2016-10-31 08:08] LABS: CEA 7.4 ng/mL (0.0-4.7)
[2016-10-31 15:33] VITALS: BP 155/78
[2016-10-31 16:28] LABS: HEMATOCRIT 41.5 % (37.0-47.0); HEMOGLOBIN 13.3 gm/dL (12.0-15.0); MCH 27.6 pg (26.0-34.0); MCV 86.4 fL (80.0-100.0); RBC 4.8 mil/uL (4.20-5.00); WBC 8.8 thou/uL (4.0-11.0)
[2016-10-31 16:39] LABS: PROTIME 12.8 Seconds (9.3-11.4)
[2016-10-31 16:43] LABS: INR 1.2
[2016-10-31 20:00] VITALS: BP 132/68
[2016-11-01 00:02] LABS: HEMOGLOBIN 12.6 gm/dL (12.0-15.0); MCH 27.9 pg (26.0-34.0); MCHC 32.3 g/dL (28.0-37.0); MCV 86.3 fL (80.0-100.0); PLATELET COUNT 128 thou/uL (150-400); RBC 4.52 mil/uL (4.20-5.00); RDW 17.6 % (10.5-14.5); WBC 5.1 thou/uL (4.0-11.0)
[2016-11-01 00:03] LABS: MANUAL DIFF YES
[2016-11-01 04:00] VITALS: BP 151/73
[2016-11-01 05:34] LABS: INR 1.3; PROTIME 13.6 Seconds (9.3-11.4)
[2016-11-01 05:38] LABS: ALBUMIN 2.6 g/dL (3.4-5.0); CALCIUM 9.4 mg/dL (8.5-10.1); CREATININE 4.4 mg/dL (0.6-1.3); PHOSPHORUS 4.7 mg/dL (2.5-4.9); POTASSIUM 4.3 mmol/L (3.5-5.1)
[2016-11-01 05:40] LABS: HEMATOCRIT 38.5 % (37.0-47.0); HEMOGLOBIN 12.5 gm/dL (12.0-15.0); MCH 27.8 pg (26.0-34.0); MCHC 32.5 g/dL (28.0-37.0); MCV 85.6 fL (80.0-100.0); PLATELET COUNT 139 thou/uL (150-400); RDW 17.7 % (10.5-14.5); WBC 4.8 thou/uL (4.0-11.0)
[2016-11-01 05:42] LABS: MANUAL DIFF YES
[2016-11-01 07:19] LABS: TOTAL CELL COUNT 100
[2016-11-01 07:20] LABS: LARGE PLATELETS FEW; PLATELET ESTIMATE DECREASED; TOXIC GRANULATION 1+
[2016-11-01 07:24] LABS: ANISOCYTOSIS 1+; POIKILOCYTOSIS SLIGHT
[2016-11-01 07:25] LABS: OVALOCYTES FEW
[2016-11-01 07:28] LABS: ABSOLUTE NEUTROPHILS 3.8 thou/uL (1.4-8.2); METAMYELOCYTES 2 %; PLATELET ESTIMATE SLIGHTLY DECREASED; TOTAL CELL COUNT 100
[2016-11-01 07:29] LABS: ANISOCYTOSIS 1+; OVALOCYTES OCCASIONAL; POIKILOCYTOSIS SLIGHT; TOXIC GRANULATION 1+
[2016-11-01 08:52] VITALS: BP 124/72
[2016-11-01 15:22] VITALS: BP 154/86
[2016-11-01 20:00] VITALS: BP 159/85
[2016-11-02 04:06] VITALS: BP 173/78
[2016-11-02 05:52] LABS: HEMATOCRIT 39.5 % (37.0-47.0); HEMOGLOBIN 12.7 gm/dL (12.0-15.0); MCH 27.9 pg (26.0-34.0); MCHC 32.2 g/dL (28.0-37.0); MCV 86.5 fL (80.0-100.0); PLATELET COUNT 133 thou/uL (150-400); RBC 4.57 mil/uL (4.20-5.00); RDW 17.6 % (10.5-14.5)
[2016-11-02 06:07] LABS: MANUAL DIFF YES
[2016-11-02 06:19] LABS: CALCIUM 9.2 mg/dL (8.5-10.1); POTASSIUM 5.3 mmol/L (3.5-5.1)
[2016-11-02 06:32] LABS: CREATININE 5.5 mg/dL (0.6-1.3)
[2016-11-02 07:30] VITALS: BP 157/79
[2016-11-02 08:34] LABS: ABSOLUTE NEUTROPHILS 4.5 thou/uL (1.4-8.2); ANISOCYTOSIS 1+; PLATELET ESTIMATE DECREASED; TOTAL CELL COUNT 100
[2016-11-02 12:15] VITALS: BP 153/80
[2016-11-02 16:18] VITALS: BP 129/79
[2016-11-02 21:32] LABS: ABG SAMPLE TYPE ARTERIAL; BE(vivo) -4.8 mmol/L (-2 to +3); HCO3 23.9 mmol/L (22.0-26.0); LACTATE 1.51 mmol/L (0.5-2.0); O2(CT) 16.8 mL/dL (15.0-23.0); O2Hb 97.6 % (92.0-98.0); PO2 206.2 mmHg (80.0-100.0); pH 7.203 (7.360-7.450); sO2 99.1 % (92.0-98.0); tCO2 25.8 mmol/L (24.0-30.0)
[2016-11-02 21:33] LABS: FIO2 60 %; TIDAL VOLUME 250 ml
[2016-11-02 21:46] LABS: POC BE 2 mmol/L (-2.0 to +3.0); POC CA IONIZED 4.2 mg/dL (4.5-5.3); POC FiO2 100 %; POC GLUCOSE 154 mg/dL (70-99); POC HCO3 26.4 mmol/L (22.0-26.0); POC HEMOGLOBIN 12.6 g/dL (12.0-15.0); POC POTASSIUM 2.9 mmol/L (3.5-5.1); POC SODIUM 138 mmol/L (136-145); POC pCO2 39.1 mmHg (35.0-45.0); POC pH 7.436 (7.360-7.450)
[2016-11-02 21:57] LABS: CALCIUM 7.9 mg/dL (8.5-10.1); POTASSIUM 3.5 mmol/L (3.5-5.1)
[2016-11-02 21:59] LABS: CREATININE 2.4 mg/dL (0.6-1.3)
[2016-11-02 23:54] LABS: ABG SAMPLE TYPE ARTERIAL; BE(vivo) -7.1 mmol/L (-2 to +3); HCO3 17.3 mmol/L (22.0-26.0); LACTATE 1.01 mmol/L (0.5-2.0); O2(CT) 12.8 mL/dL (15.0-23.0); O2Hb 97.6 % (92.0-98.0); PCO2 30.4 mmHg (35.0-45.0); PO2 188.7 mmHg (80.0-100.0); pH 7.372 (7.360-7.450); sO2 99.3 % (92.0-98.0); tCO2 18.2 mmol/L (24.0-30.0)
[2016-11-02 23:55] LABS: FIO2 50 %; STICK SITE LINE; TIDAL VOLUME 350 ml
[2016-11-03 03:08] LABS: HEMATOCRIT 36.2 % (37.0-47.0); HEMOGLOBIN 11.5 gm/dL (12.0-15.0); MCH 27.7 pg (26.0-34.0); MCHC 31.8 g/dL (28.0-37.0); MCV 86.9 fL (80.0-100.0); RBC 4.17 mil/uL (4.20-5.00); RDW 17.6 % (10.5-14.5); WBC 13.9 thou/uL (4.0-11.0)
[2016-11-03 03:19] LABS: CALCIUM 8.4 mg/dL (8.5-10.1); CREATININE 2.9 mg/dL (0.6-1.3)
[2016-11-03 03:21] LABS: POTASSIUM 4.5 mmol/L (3.5-5.1)
[2016-11-03 08:52] LABS: ABG SAMPLE TYPE ARTERIAL; BE(vivo) -1.6 mmol/L (-2 to +3); HCO3 23.9 mmol/L (22.0-26.0); LACTATE 1.53 mmol/L (0.5-2.0); O2(CT) 15.9 mL/dL (15.0-23.0); O2Hb 97.7 % (92.0-98.0); PCO2 43.5 mmHg (35.0-45.0); PO2 170.7 mmHg (80.0-100.0); STICK SITE LINE; pH 7.358 (7.360-7.450); sO2 99.1 % (92.0-98.0); tCO2 25.2 mmol/L (24.0-30.0)
[2016-11-03 08:53] LABS: ABG COMMENT 1 HR CPAP TRIAL; Pressure Support 5 cm H20
[2016-11-03 15:13] VITALS: BP 106/34
[2016-11-04 06:55] LABS: HEMATOCRIT 32.1 % (37.0-47.0); HEMOGLOBIN 10.2 gm/dL (12.0-15.0); MCH 27.7 pg (26.0-34.0); MCHC 31.9 g/dL (28.0-37.0); MCV 86.6 fL (80.0-100.0); RBC 3.7 mil/uL (4.20-5.00); RDW 17.9 % (10.5-14.5); WBC 14.2 thou/uL (4.0-11.0)
[2016-11-04 07:10] LABS: ALBUMIN 2.1 g/dL (3.4-5.0); CALCIUM 9.3 mg/dL (8.5-10.1); MAGNESIUM 1.8 mg/dL (1.8-2.4); POTASSIUM 4.4 mmol/L (3.5-5.1); TOTAL BILIRUBIN 0.4 mg/dL (<0.1-1.0); TOTAL PROTEIN 5.4 g/dL (6.4-8.2)
[2016-11-04 07:11] LABS: CREATININE 4.3 mg/dL (0.6-1.3)
[2016-11-04 07:49] VITALS: BP 158/73
[2016-11-04 08:09] VITALS: BP 176/63
[2016-11-04 09:03] LABS: ABG SAMPLE TYPE ARTERIAL; BE(vivo) -3.9 mmol/L (-2 to +3); HCO3 21.6 mmol/L (22.0-26.0); LACTATE 1.32 mmol/L (0.5-2.0); O2Hb 97.1 % (92.0-98.0); PCO2 40.7 mmHg (35.0-45.0); PO2 130.7 mmHg (80.0-100.0); Pressure Support 5 cm H20; STICK SITE LINE; pH 7.342 (7.360-7.450); sO2 98.5 % (92.0-98.0); tCO2 22.8 mmol/L (24.0-30.0)
[2016-11-04 09:04] LABS: ABG COMMENT CPAP TRIAL
[2016-11-04 09:49] VITALS: BP 152/45
[2016-11-04 22:50] VITALS: BP 145/46
[2016-11-05] VITALS (31 sets, daily range): BP systolic 102–186; BP diastolic 24–102
[2016-11-05 05:19] LABS: HEMATOCRIT 31.5 % (37.0-47.0); HEMOGLOBIN 9.8 gm/dL (12.0-15.0); MCH 27.4 pg (26.0-34.0); MCHC 31.2 g/dL (28.0-37.0); MCV 87.9 fL (80.0-100.0); RBC 3.58 mil/uL (4.20-5.00); RDW 17.5 % (10.5-14.5); WBC 14.9 thou/uL (4.0-11.0)
[2016-11-05 05:36] LABS: ALBUMIN 1.9 g/dL (3.4-5.0); CALCIUM 9.1 mg/dL (8.5-10.1); PHOSPHORUS 5.9 mg/dL (2.5-4.9); POTASSIUM 4.2 mmol/L (3.5-5.1)
[2016-11-05 05:42] LABS: CREATININE 5.7 mg/dL (0.6-1.3)
[2016-11-06] VITALS (35 sets, daily range): BP systolic 98–174; BP diastolic 31–82
[2016-11-06 05:23] LABS: ALBUMIN 1.7 g/dL (3.4-5.0); CALCIUM 9.3 mg/dL (8.5-10.1); CREATININE 3.3 mg/dL (0.6-1.0); MAGNESIUM 2.1 mg/dL (1.8-2.4); TOTAL BILIRUBIN 0.4 mg/dL (<0.1-1.0); TOTAL PROTEIN 5.1 g/dL (6.4-8.2)
[2016-11-07] VITALS (61 sets, daily range): BP systolic 103–172; BP diastolic 28–105
[2016-11-07 04:45] LABS: HEMATOCRIT 27.9 % (37.0-47.0); HEMOGLOBIN 8.8 gm/dL (12.0-15.0); MCH 27.6 pg (26.0-34.0); MCHC 31.6 g/dL (28.0-37.0); MCV 87.4 fL (80.0-100.0); PLATELET COUNT 150 thou/uL (150-400); RDW 17.4 % (10.5-14.5); WBC 11.6 thou/uL (4.0-11.0)
[2016-11-07 04:49] LABS: MANUAL DIFF YES
[2016-11-07 05:00] LABS: ALBUMIN 1.8 g/dL (3.4-5.0); CALCIUM 9.6 mg/dL (8.5-10.1); CREATININE 4.4 mg/dL (0.6-1.0); PHOSPHORUS 3.3 mg/dL (2.5-4.9); POTASSIUM 3.9 mmol/L (3.5-5.1)
[2016-11-07 06:51] LABS: TOTAL CELL COUNT 100
[2016-11-07 06:52] LABS: ANISOCYTOSIS 1+
[2016-11-08] VITALS (24 sets, daily range): BP systolic 121–199; BP diastolic 20–96
[2016-11-08 05:13] LABS: ALBUMIN 1.8 g/dL (3.4-5.0); CALCIUM 9.3 mg/dL (8.5-10.1); MAGNESIUM 2.2 mg/dL (1.8-2.4); POTASSIUM 3.7 mmol/L (3.5-5.1); TOTAL BILIRUBIN 0.4 mg/dL (<0.1-1.0); TOTAL PROTEIN 5.8 g/dL (6.4-8.2)
[2016-11-08 05:31] LABS: CREATININE 2.8 mg/dL (0.6-1.0)
[2016-11-08 09:07] LABS: ABG SAMPLE TYPE ARTERIAL; BE(vivo) 3.8 mmol/L (-2 to +3); HCO3 28.8 mmol/L (22.0-26.0); O2(CT) 13.3 mL/dL (15.0-23.0); O2Hb 97.2 % (92.0-98.0); PO2 132.4 mmHg (80.0-100.0); pH 7.415 (7.360-7.450); sO2 98.7 % (92.0-98.0); tCO2 30.2 mmol/L (24.0-30.0)
[2016-11-08 09:08] LABS: ABG COMMENT CPAP TRIAL; Pressure Support 5 cm H20; STICK SITE R.BRACHIAL
[2016-11-09] VITALS (54 sets, daily range): BP systolic 91–209; BP diastolic 28–107
[2016-11-09 06:06] LABS: ALBUMIN 1.6 g/dL (3.4-5.0); CALCIUM 9.4 mg/dL (8.5-10.1); PHOSPHORUS 2.3 mg/dL (2.5-4.9); POTASSIUM 3.5 mmol/L (3.5-5.1)
[2016-11-09 06:09] LABS: CREATININE 3.9 mg/dL (0.6-1.0)
[2016-11-09 06:13] LABS: HEMATOCRIT 28.1 % (37.0-47.0); HEMOGLOBIN 9.1 gm/dL (12.0-15.0); MCHC 32.5 g/dL (28.0-37.0); MCV 86.3 fL (80.0-100.0); RBC 3.25 mil/uL (4.20-5.00); RDW 17.5 % (10.5-14.5); WBC 8.5 thou/uL (4.0-11.0)
[2016-11-10] VITALS (33 sets, daily range): BP systolic 127–186; BP diastolic 32–66
[2016-11-10 05:08] LABS: ALBUMIN 1.6 g/dL (3.4-5.0); CALCIUM 9.1 mg/dL (8.5-10.1); POTASSIUM 3.6 mmol/L (3.5-5.1)
[2016-11-10 05:11] LABS: CREATININE 2.5 mg/dL (0.6-1.0)
[2016-11-11] VITALS (12 sets, daily range): BP systolic 124–175; BP diastolic 42–86
[2016-11-12 07:43] VITALS: BP 129/64
[2016-11-12 07:53] LABS: HEMATOCRIT 25.6 % (37.0-47.0); HEMOGLOBIN 8.4 gm/dL (12.0-15.0); MCHC 32.6 g/dL (28.0-37.0); MCV 85.9 fL (80.0-100.0); RBC 2.98 mil/uL (4.20-5.00); RDW 17.3 % (10.5-14.5)
[2016-11-12 08:11] LABS: PROTIME 10.5 Seconds (9.3-11.4)
[2016-11-12 08:16] LABS: ALBUMIN 1.7 g/dL (3.4-5.0); CALCIUM 9.7 mg/dL (8.5-10.1); PHOSPHORUS 2.8 mg/dL (2.5-4.9); POTASSIUM 4.6 mmol/L (3.5-5.1)
[2016-11-12 08:20] LABS: CREATININE 4.5 mg/dL (0.6-1.0)
[2016-11-12 17:15] VITALS: BP 124/59
[2016-11-12 20:00] VITALS: BP 122/70
[2016-11-13 04:00] VITALS: BP 110/68
[2016-11-13 07:30] VITALS: BP 178/60
[2016-11-13 15:36] VITALS: BP 137/54
[2016-11-13 20:00] VITALS: BP 125/48
[2016-11-14 06:00] VITALS: BP 143/48
[2016-11-14 08:00] VITALS: BP 179/57
== END 2016-11-14 10:32 | disposition hospice, inpatient (51) | DRG 329 ==
LOC: ER 09:01 → 4E 12:02 → ICU 12:02 → EROBS 12:02 → 4E 12:51 → ICU 11-02 21:23 → 5S 11-11 18:50
PROVIDERS: Anesthesiology; Emergency Medicine; Family Medicine; Hospitalist; Internal Medicine Gastroenterology; Internal Medicine Nephrology; Internal Medicine Pulmonary Disease; Surgery
PROC: 30233L1 Transfusion of Nonautologous Fresh Plasma into Peripheral Vein, Percutaneous Approach (ICD-10-PCS; 2016-10-28)
PROC: 30233K1 Transfusion of Nonautologous Frozen Plasma into Peripheral Vein, Percutaneous Approach (ICD-10-PCS; 2016-10-28)
PROC: 5A1955Z Respiratory Ventilation, Greater than 96 Consecutive Hours (ICD-10-PCS; principal; 2016-11-02)
PROC: 0WQF0ZZ Repair Abdominal Wall, Open Approach (ICD-10-PCS; 2016-11-02)
PROC: 0DN80ZZ Release Small Intestine, Open Approach (ICD-10-PCS; 2016-11-02)
PROC: 0DB80ZZ Excision of Small Intestine, Open Approach (ICD-10-PCS; 2016-11-02)
PROC: 0BH17EZ Insertion of Endotracheal Airway into Trachea, Via Natural or Artificial Opening (ICD-10-PCS; 2016-11-02)
PROC: 02HV33Z Insertion of Infusion Device into Superior Vena Cava, Percutaneous Approach (ICD-10-PCS; 2016-11-04)
PROC: 5A1D60Z (ICD-10-PCS; 2016-11-11)
DX: K63.1 Perforation of intestine (nontraumatic) (principal); N18.6 End stage renal disease; R65.11 Systemic inflammatory response syndrome (SIRS) of non-infectious origin with acute organ dysfunction; K65.9 Peritonitis, unspecified; G92 Toxic encephalopathy; J96.01 Acute respiratory failure with hypoxia; E43 Unspecified severe protein-calorie malnutrition; I13.2 Hypertensive heart and chronic kidney disease with heart failure and with stage 5 chronic kidney disease, or end stage renal disease; R18.8 Other ascites; D68.9 Coagulation defect, unspecified; K43.6 Other and unspecified ventral hernia with obstruction, without gangrene; I50.30 Unspecified diastolic (congestive) heart failure; B49 Unspecified mycosis; Z68.1 Body mass index [BMI] 19.9 or less, adult; Z66 Do not resuscitate; E78.5 Hyperlipidemia, unspecified; F41.9 Anxiety disorder, unspecified; K21.9 Gastro-esophageal reflux disease without esophagitis; H54.0 Blindness, both eyes; H35.30 Unspecified macular degeneration; K52.9 Noninfective gastroenteritis and colitis, unspecified; F03.90 Unspecified dementia, unspecified severity, without behavioral disturbance, psychotic disturbance, mood disturbance, and anxiety; D64.9 Anemia, unspecified; I48.91 Unspecified atrial fibrillation; E11.22 Type 2 diabetes mellitus with diabetic chronic kidney disease; H91.90 Unspecified hearing loss, unspecified ear; R53.81 Other malaise; G31.84 Mild cognitive impairment of uncertain or unknown etiology; Z51.5 Encounter for palliative care; Z88.8 Allergy status to other drugs, medicaments and biological substances; Z90.710 Acquired absence of both cervix and uterus; Z88.6 Allergy status to analgesic agent; Z99.2 Dependence on renal dialysis
CPT/HCPCS: 10078; 10084; 10785; 27000; 32100; 50010; 50101; 50331; 50386; 50953; 51412; 51435; 51708; 51712; 52287; 55075; 56524; 56526; 56527; 56528; 56530; 57092; 62110; 62900